=== PATIENT | female | born 1980 | race Hispanic/Latino ===

== ENCOUNTER 2017-10-06 20:29 | Inpatient (IN) | payer OTHER, MEDICAID ==
[~2017-10-06] VITALS: Ht 157.5 cm; Wt 101.2 kg
[2017-10-06 21:05] LABS: APPEARANCE,URINE Clear (CLEAR); BILIRUBIN,URINE Negative (NEGATIVE); COLOR,URINE Yellow (YELLOW); GLUCOSE, URINE (UA) Negative (NEGATIVE); KETONES,URINE Negative (NEGATIVE); LEUKOCYTE ESTERASE ,URINE Negative (NEGATIVE); NITRATE,URINE Negative (NEGATIVE); OCCULT BLOOD,URINE Nonhemolyzed Trace (NEGATIVE); PH,URINE 6.5 (5.0-8.0); PROTEIN,URINE Negative (NEGATIVE); UROBILINOGEN,URINE 0.2 mg/dL (0.2-1.0)
[2017-10-06 21:09] LABS: HEMATOCRIT 37.5 % (36-48); MEAN CORPUSCULAR HEMOGLOBIN 27.5 pg (27.0-33.0); MEAN CORPUSCULAR HGB CONC 33.6 g/dL (32.0-36.0); NUCLEATED RED BLOOD CELLS 0.1 % (0.0-0.19); PLATELET COUNT (AUTO) 234 K/uL (130-400); RED BLOOD CELL COUNT(AUTO) 4.57 MIL/uL (4.00-5.50); RED CELL DISTRIBUTION WIDTH 15.6 % (11.0-15.5); WHITE BLOOD COUNT (AUTO) 16.4 K/uL (4.8-10.8)
[2017-10-06 21:13] LABS: BACTERIA,URINE None Seen /HPF (None Seen); RBC,URINE 0-1 /HPF (0-1); SQUAMOUS EPITHELIAL CELL,UR 0-2 /LPF (0-2); WBC,URINE None Seen /HPF (0-1)
[2017-10-06] MEDS ORDERED: AMPICILLIN 2GM+NS 100ML 100 ML IV SCH (21:30)
[2017-10-06] MEDS ORDERED: AMPICILLIN 2GM+NS 100ML 100 ML IV ONE (21:30)
[2017-10-06] MEDS ORDERED: BUTORPHANOL TARTRATE 2 MG/ML IVP PRN (21:30)
[2017-10-06] MEDS: LACTATED RINGERS 1000ML 1,000 ML IV PRN ×2 (21:35→23:09)
[2017-10-06] MEDS: ACETAMINOPHEN EXTRA STRENGTH 500 MG TABLET PO SCH (21:56)
[2017-10-07] VITALS (9 sets, daily range): BP systolic 104–135; BP diastolic 57–76
[2017-10-07] MEDS: AMPICILLIN 1GM+NS 50ML 50 ML IV SCH ×3 (01:07→09:28)
[2017-10-07] MEDS: ACETAMINOPHEN EXTRA STRENGTH 500 MG TABLET PO SCH ×2 (03:32→09:28)
[2017-10-07] MEDS: LACTATED RINGERS 1000ML 1,000 ML IV PRN (03:32)
[2017-10-07] MEDS ORDERED: OXYTOCIN 10 USP UNITS/ML 20 UNIT in LACTATED RINGERS 1000ML 1,000 ML IV SCH (05:45)
[2017-10-07] MEDS ORDERED: OXYTOCIN 10 USP UNITS/ML ONE ×2 (06:31→12:30)
[2017-10-07] MEDS ORDERED: LACTATED RINGERS 1000ML 1,000 ML IV ONE (06:31)
[2017-10-07] MEDS: OSELTAMIVIR PHOSPHATE 75 MG CAP PO SCH ×2 (09:28→21:00)
[2017-10-07] MEDS ORDERED: LIDOCAINE HCL 1% 20 ML VIAL ONE (12:30)
[2017-10-07] MEDS ORDERED: METHYLERGONOVINE MALEATE 0.2 MG/1 ML ML ONE (13:36)
[2017-10-07] MEDS ORDERED: LANOLIN 30GM OINTMENT TP PRN (13:45)
[2017-10-07] MEDS ORDERED: MEASLES/MUMPS/RUBELLA VACCINE, LIVE 0.5 ML/VIAL SQ PRN (13:45)
[2017-10-07] MEDS ORDERED: MISOPROSTOL 200 MCG TABLET ONE (13:45)
[2017-10-07] MEDS ORDERED: OXYTOCIN-LR 20 UNITS/1000 ML 1,000 ML IV SCH (13:45)
[2017-10-07] MEDS ORDERED: WITCH HAZEL 1 PAD TP PRN (13:45)
[2017-10-07] MEDS ORDERED: DIPH,PERTUSS(ACELL),TET VAC/PF 0.5 ML VIAL IM PRN (13:45)
[2017-10-07] MEDS ORDERED: PREN-154 PO (15:13)
[2017-10-07] MEDS: DOCUSATE SODIUM 100 MG CAP PO SCH (21:00)
[2017-10-07] MEDS: IBUPROFEN 600 MG TABLET PO PRN (21:03)
[2017-10-07] MEDS ORDERED: BENZOCAINE/MENTH/CETYLPYRD CL 1 EACH LOZENGE MM PRN (21:45)
[2017-10-07] MEDS ORDERED: HYDROCODONE/ACETAMINOPHEN 10/325 MG TAB PO PRN (21:45)
[2017-10-07] MEDS ORDERED: GUAIFENESIN-DM 200/20 MG 10 ML PO PRN (21:45)
[2017-10-08 03:11] VITALS: BP 125/75
[2017-10-08] MEDS: IBUPROFEN 600 MG TABLET PO PRN ×3 (03:26→15:35)
[2017-10-08 06:44] LABS: HEMATOCRIT 33.6 % (36-48); MEAN CORPUSCULAR HEMOGLOBIN 27.1 pg (27.0-33.0); MEAN CORPUSCULAR HGB CONC 32.9 g/dL (32.0-36.0); MEAN CORPUSCULAR VOLUME 82.4 fL (79-99); PLATELET COUNT (AUTO) 224 K/uL (130-400); RED BLOOD CELL COUNT(AUTO) 4.08 MIL/uL (4.00-5.50); RED CELL DISTRIBUTION WIDTH 16.1 % (11.0-15.5); WHITE BLOOD COUNT (AUTO) 12.1 K/uL (4.8-10.8)
[2017-10-08 07:23] VITALS: BP 124/69
[2017-10-08] MEDS: DOCUSATE SODIUM 100 MG CAP PO SCH ×2 (08:42→21:33)
[2017-10-08] MEDS: OSELTAMIVIR PHOSPHATE 75 MG CAP PO SCH ×2 (08:42→21:33)
[2017-10-08 10:08] LABS: HEPATITIS Bs ANTIGEN SCREEN P Negative (Negative)
[2017-10-08 11:30] VITALS: BP 118/69
[2017-10-08 15:25] VITALS: BP 121/71
[2017-10-08] MEDS ORDERED: DIPH,PERTUSS(ACELL),TET VAC/PF 0.5 ML VIAL IM SCH (16:30)
[2017-10-08 20:11] VITALS: BP 126/79
[2017-10-08] MEDS: AMPICILLIN 1GM+NS 50ML 50 ML IV SCH (21:30)
[2017-10-09 00:10] VITALS: BP 107/77
[2017-10-09] MEDS: AMPICILLIN 1GM+NS 50ML 50 ML IV SCH ×4 (01:30→13:30)
[2017-10-09 03:47] VITALS: BP 106/54
[2017-10-09] MEDS: IBUPROFEN 600 MG TABLET PO PRN ×2 (03:51→10:04)
[2017-10-09 04:16] VITALS: BP 131/84
[2017-10-09 08:10] VITALS: BP 113/62
[2017-10-09] MEDS: ACETAMINOPHEN EXTRA STRENGTH 500 MG TABLET PO SCH ×2 (08:30→14:30)
[2017-10-09] MEDS: OSELTAMIVIR PHOSPHATE 75 MG CAP PO SCH (08:42)
[2017-10-09] MEDS: DOCUSATE SODIUM 100 MG CAP PO SCH (08:42)
[2017-10-09 11:36] VITALS: BP 119/76
== END 2017-10-09 14:50 | disposition home or self-care (01) | DRG 775 ==
LOC: EDH 20:29 → LDH 20:30 → OBSVTOIN 20:31 → WSH 10-07 16:35
PROVIDERS: ADMIT Obstetrics & Gynecology; ATTEND Obstetrics & Gynecology
PROC: 10E0XZZ Delivery of Products of Conception, External Approach (ICD-10-PCS; principal; 2017-10-07)
PROC: 10907ZC Drainage of Amniotic Fluid, Therapeutic from Products of Conception, Via Natural or Artificial Opening (ICD-10-PCS; 2017-10-07)
PROC: 3E0234Z Introduction of Serum, Toxoid and Vaccine into Muscle, Percutaneous Approach (ICD-10-PCS; 2017-10-07)
DX: O99.824 Streptococcus B carrier state complicating childbirth (principal); O77.0 Labor and delivery complicated by meconium in amniotic fluid; Z37.0 Single live birth; Z3A.39 39 weeks gestation of pregnancy; O62.2 Other uterine inertia; Z23 Encounter for immunization
CPT/HCPCS: 36415; 81001; 85027; 86592; 86850; 86900; 86901; 87340; 87804; 87880; 90715; J0290; J0595; J2210; J2590; J7120